=== PATIENT | male | born 1995 | race Caucasian/White ===

== ENCOUNTER 2024-04-19 21:04 | Emergency (ER) | payer BC, MEDICAID ==
[2024-04-19] MEDS: Iopamidol 755 Mg/ML 100 ML Bottle IVPUSH ONE (22:03)
[2024-04-19] MEDS: predniSONE 10 MG Tab PO ONE (23:07)
[2024-04-19] MEDS: Cyclobenzaprine 10 MG Tab PO ONE (23:07)
== END 2024-04-19 23:08 | disposition home or self-care (01) ==
LOC: JD.ED 21:04
DX: M54.2 Cervicalgia (principal); F17.210 Nicotine dependence, cigarettes, uncomplicated; Z79.899 Other long term (current) drug therapy; X50.1XXA Overexertion from prolonged static or awkward postures, initial encounter
CPT/HCPCS: 70498; 99284; A9270; J7512; Q9967; 99283